=== PATIENT | male | born 1960 | race Caucasian/White ===

== ENCOUNTER → 2018-03-24 07:15 | Outpatient (CLI) | payer OTHER, SELFPAY ==
[2018-03-24 07:53] LABS: Add Manual Diff / Slide Review NO; Basophils Percent Auto 0.5 % (0-2); Eosinophils Percent Auto 1.3 % (2-4); Hematocrit 45.9 % (41-53); Hemoglobin 15.6 g/dL (13.5-17.5); Lymphocytes Percent Auto 18.2 % (25-40); Mean Corpuscular HGB Conc 33.9 % (30-36); Mean Corpuscular Hemoglobin 31.3 PG (26-34); Mean Corpuscular Volume 92.4 fL (80-100); Monocytes Percent Auto 6.8 % (3-14); Neutrophils Absolute Auto 6400 /uL (3000-5900); Neutrophils Percent Auto 73.2 % (50-75); Platelet Count 199 X10^3/uL (150-400); Red Blood Cell Count 4.97 X10^6/uL (4.5-5.9); Red Cell Distribution Width 13.5 % (11.6-14.8); White Blood Cell Count 8.8 X10^3/uL (4.5-11.0)
[2018-03-24 08:13] LABS: Alanine Aminotransferase 33 IU/L (21-72); Albumin 4.1 g/dL (3.5-5.0); Albumin Globulin Ratio 1.3 (1.0-2.8); Alkaline Phosphatase 58 U/L (38-126); Aspartate Aminotransferase 28 IU/L (17-59); Blood Urea Nitrogen 20 mg/dL (9-20); Calcium 9.6 mg/dL (8.4-10.2); Carbon Dioxide 31 mmol/L (22-32); Chloride 101 mmol/L (98-107); Cholesterol 178 mg/dL (140-199); Estimated Glomerular Filt Rate > 60.0 mL/min (>60); Globulin 3.2 g/dL (1.7-4.1); Glucose 106 mg/dL (70-100); HDL Cholesterol 62 mg/dL (40-60); HEMOLYSIS < 15 (0-50); LDL Cholesterol Calculated 107 mg/dL (<100); Potassium 4.3 mmol/L (3.4-5.1); Sodium 141 mmol/L (137-145); Total Protein 7.3 g/dL (6.3-8.2); Triglycerides 43 mg/dL (35-150)
[2018-03-24 08:40] LABS: Prostate Specific Antigen Scrn 2.57 ng/mL (0.1-4.0); TSH w/ Reflex to FT4 2.13 uIU/mL (0.47-4.68)
== END ==
PROVIDERS: Family Provider Family Medicine; PCP Family Medicine; Visit Provider Family Medicine
DX: I10 Essential (primary) hypertension (principal); Z12.5 Encounter for screening for malignant neoplasm of prostate
CPT/HCPCS: 36415; 80053; 80061; 84443; 85025; G0103

== ENCOUNTER → 2020-06-26 08:47 | Outpatient (CLI) | payer OTHER, SELFPAY ==
[2020-06-26 10:01] LABS: Add Manual Diff / Slide Review NO; Basophils Absolute Auto 0 /uL (0-100); Basophils Percent Auto 0.7 % (0-2); Eosinophils Absolute Auto 100 /uL (0-450); Eosinophils Percent Auto 2.7 % (2-4); Hematocrit 45.8 % (41-53); Hemoglobin 15.5 g/dL (13.5-17.5); Lymphocytes Absolute Auto 1300 /uL (1100-4500); Lymphocytes Percent Auto 26.7 % (25-40); Mean Corpuscular HGB Conc 33.7 % (30-36); Mean Corpuscular Hemoglobin 31.7 PG (26-34); Mean Corpuscular Volume 94.1 fL (80-100); Monocytes Absolute Auto 500 /uL (0-900); Monocytes Percent Auto 9.9 % (3-14); Neutrophils Absolute Auto 3000 /uL (1500-7000); Platelet Count 186 X10^3/uL (150-400); Red Blood Cell Count 4.87 X10^6/uL (4.5-5.9); Red Cell Distribution Width 13.3 % (11.6-14.8)
[2020-06-26 10:06] LABS: Alanine Aminotransferase 19 IU/L (<50); Albumin 4.1 g/dL (3.5-5.0); Albumin Globulin Ratio 1.4 (1.0-2.8); Alkaline Phosphatase 57 U/L (38-126); Aspartate Aminotransferase 24 IU/L (17-59); BUN Creatinine Ratio 21.5 (6-22); Bilirubin Total 0.6 mg/dL (0.2-1.3); Blood Urea Nitrogen 20 mg/dL (9-20); Calcium 9.8 mg/dL (8.4-10.2); Carbon Dioxide 31 mmol/L (22-32); Chloride 102 mmol/L (98-107); Cholesterol 199 mg/dL (140-199); Estimated Glomerular Filt Rate > 60.0 mL/min (>60); Globulin 2.9 g/dL (1.7-4.1); Glucose 104 mg/dL (70-100); HDL Cholesterol 80 mg/dL (40-60); HEMOLYSIS < 15 (0-50); LDL Cholesterol Calculated 110 mg/dL (<100); Potassium 4.9 mmol/L (3.4-5.1); Sodium 138 mmol/L (137-145); Triglycerides 43 mg/dL (35-150)
[2020-06-26 10:37] LABS: Prostate Specific Antigen Scrn 2.76 ng/mL (0.1-4.0)
[2020-06-26 11:08] LABS: TSH w/ Reflex to FT4 1.75 uIU/mL (0.47-4.68)
== END ==
PROVIDERS: Family Provider Family Medicine; PCP Family Medicine; Referring Provider Family Medicine; Visit Provider Family Medicine
DX: Z12.5 Encounter for screening for malignant neoplasm of prostate (principal); I10 Essential (primary) hypertension; Z13.6 Encounter for screening for cardiovascular disorders
CPT/HCPCS: 36415; 80053; 80061; 84443; 85025; G0103

== ENCOUNTER 2021-09-02 16:28 | Emergency (ER) | payer OTHER, SELFPAY ==
[2021-09-02 16:39] VITALS: BP 187/96; PULSE 93; RESP 20; TEMP 37.1; O2SAT 99; BMI 21.6
--- NOTE | 2021-09-02 19:02 | ED_ITS ---
HPI - Nausea/Vomiting/Diarrhea General Chief complaint: Nausea/Vomiting/Diarrhea Stated complaint: SPASMS IN ESOPHAGUS, ABD PRESSURE Time Seen by Provider: 09/02/21 18:38 Source: patient Mode of arrival: Ambulatory History of Present Illness HPI Narrative: Patient is a 61-year-old male who presents with esophageal spasm. He said he ate breakfast this morning without issue younger in the [employer] [place]. At lunch he had pork winter [facility] with pumpkin [place] he felt something get stuck and not quite go down. He tried water it increased the pressure up into his neck and chest. He vomited things came mouth he continued to have spasm and tightness sensation continued to spit. Now after being in the emergency department he is actually feeling better. I gave him pepsi he was able to drink it without any difficulty in feels like his symptoms have completely resolved. Related Data Previous Rx's Medication Instructions Recorded lisinopril 10 mg tablet 15 mg PO QDAY #180 tab 12/10/20 Allergies Allergy/AdvReac Type Severity Reaction Status Date / Time amoxicillin [AMOXICILLIN] Allergy Mild RASH Verified 07/01/20 09:22 Review of Systems Review of Systems Narrative: GENERAL: Denies chills, fatigue, malaise, fever, sweats, travel HEENT: See HPI RESPIRATORY: Denies dyspnea, cough, wheezing, hemoptysis, sputum. CARDIOVASCULAR: Denies chest pain, palpitations, orthopnea, edema GASTROINTESTINAL: Denies nausea, vomiting, abdominal pain, diarrhea, constipation, melena. : Denies dysuria, frequency, incontinence, hematuria, urinary retention, flank pain. MUSCULOSKELETAL: Denies weakness, joint pain, or bony pain SKIN: No rash, no erythema, no pruritus NEUROLOGIC: Denies weakness, dizziness, headache, numbness, change in speech, confusion PSYCHIATRIC: No concerning psychosocial issues. 12 point review of systems is negative except for those stated above and HPI Patient History Medical History (Updated 09/02/21 @ 19:06 by Shelby Lay DO) Hypertension (~2012) Vision disorder Surgical History Anesthesia History of oral surgery (~02/1978) History of third molar tooth extraction (~1979) Varicocele (~03/1984) Family History Father Age: 85 Hypertension Grandfather Age: 88 Heart failure Diabetes mellitus Mother Age: 80 Hypertension Grandmother Age: 90 Heart disease Sister Age: 55 Hypertension Social History marital status: Smoking Status: Never smoker alcohol intake: current (1-2 A DAY ) substance use type: does not use Smoking Status: Never smoker alcohol intake frequency: 0-2 drinks per day Substance Use Type: does not use Exam Initial Vital Signs Initial Vital Signs: Vital Signs Temperature 98.7 F 09/02/21 16:39 Pulse Rate 93 H 09/02/21 16:39 Respiratory Rate 20 09/02/21 16:39 Blood Pressure 187/96 H 09/02/21 16:39 Pulse Oximetry 99 09/02/21 16:39 GENERAL: Well-appearing 61-year-old male in no acute distress. HEENT: Head atraumatic,EOMI, pupils reactive, face symmetric, moist mucous membranes CARDIOVASCULAR: Regular rate and rhythm without murmurs, rubs or gallops. RESPIRATORY: Breath sounds equal bilaterally, no wheezes rales or rhonchi. Speaks in full sentences managing secretions EXTREMITIES: Normal range of motion, no clubbing or edema. Neurovascularly intact NEUROLOGICAL: Alert and oriented x4. SKIN: Warm, dry, no laceration, no petechiae, no rashes or lesions. Course Vital Signs Vital signs: Vital Signs - 8 hr 09/02/21 19:14 Pulse Rate 105 H Blood Pressure 188/111 H Pulse Oximetry 98 MDM - Nausea/Vomiting/Diarrhea MDM Narrative Medical decision making narrative: Patient's symptoms have overall completely resolved while in the emergency department and after drinking Pepsi. He has no tightness or fullness he is able to swallow and manage secretions. Symptoms are consistent with esophageal spasm. At this time no further testing or imaging is needed. Discharge Plan Departure Patient Disposition: Home Clinical Impression: Spasm of esophagus Instructions: Steakhouse Syndrome Activity Restrictions/Additional Instructions: *You have been diagnosed with esophageal spasm *What to do: Make sure you increase water intake while eating. If this happens again that you may need further testing *Continue to take medications as directed *Follow up with your primary care provider in 2-3 days *Return to ER if you should have any new, worsening or concerning symptoms Prescriptions: No Action lisinopril 10 mg tablet 15 mg PO QDAY Qty: 180 2RF Referrals: Gordon Marinelli MD [Primary Care Provider] -
[2021-09-02 19:14] VITALS: BP 188/111; PULSE 105; O2SAT 98
== END 2021-09-02 19:14 | disposition home or self-care (01) ==
PROVIDERS: Emergency Provider Emergency Medicine; Family Provider Family Medicine; PCP Family Medicine
DX: K22.4 Dyskinesia of esophagus (principal)
CPT/HCPCS: 99281

== ENCOUNTER → 2022-01-26 09:50 | Outpatient (CLI) | payer OTHER, SELFPAY ==
[2022-01-26 10:51] LABS: Add Manual Diff / Slide Review NO; Basophils Absolute Auto 0 /uL (0-100); Basophils Percent Auto 0.6 % (0-2); Eosinophils Absolute Auto 100 /uL (0-450); Eosinophils Percent Auto 1.9 % (2-4); Hematocrit 46.8 % (41-53); Hemoglobin 15.7 g/dL (13.5-17.5); Lymphocytes Absolute Auto 1500 /uL (1100-4500); Lymphocytes Percent Auto 19.1 % (25-40); Mean Corpuscular HGB Conc 33.5 % (30-36); Mean Corpuscular Hemoglobin 30.9 PG (26-34); Mean Corpuscular Volume 92.1 fL (80-100); Monocytes Absolute Auto 600 /uL (0-900); Monocytes Percent Auto 8.1 % (3-14); Neutrophils Absolute Auto 5400 /uL (1500-7000); Neutrophils Percent Auto 70.3 % (50-75); Platelet Count 204 X10^3/uL (150-400); Red Blood Cell Count 5.09 X10^6/uL (4.5-5.9); Red Cell Distribution Width 13.5 % (11.6-14.8); White Blood Cell Count 7.7 X10^3/uL (4.5-11.0)
[2022-01-26 11:30] LABS: Cholesterol 203 mg/dL (140-199); HDL Cholesterol 79 mg/dL (40-60); LDL Cholesterol Calculated 114 mg/dL (<100); Triglycerides 51 mg/dL (35-150)
[2022-01-26 11:58] LABS: Prostate Specific Antigen Scrn 5.49 ng/mL (0.1-4.0)
== END ==
PROVIDERS: Family Provider Family Medicine; PCP Family Medicine; Referring Provider Family Medicine; Visit Provider Family Medicine
DX: Z12.5 Encounter for screening for malignant neoplasm of prostate (principal); I10 Essential (primary) hypertension
CPT/HCPCS: 36415; 80061; 84443; 85025; G0103

== ENCOUNTER → 2022-09-29 06:54 | Outpatient (CLI) | payer OTHER, SELFPAY ==
[2022-09-29 09:37] LABS: Prostate Specific Antigen Scrn 3.74 ng/mL (0.1-4.0)
== END ==
PROVIDERS: Family Provider Family Medicine; PCP Family Medicine; Referring Provider Family Medicine; Visit Provider Family Medicine
DX: Z12.5 Encounter for screening for malignant neoplasm of prostate (principal)
CPT/HCPCS: 36415; G0103

== ENCOUNTER → 2023-03-17 06:52 | Outpatient (CLI) | payer OTHER, SELFPAY ==
[2023-03-17 08:42] LABS: Basophils Absolute Auto 0 /uL (0-100); Basophils Percent Auto 0.7 % (0-2); Eosinophils Absolute Auto 100 /uL (0-450); Eosinophils Percent Auto 2.1 % (2-4); Hematocrit 43.9 % (41-53); Hemoglobin 14.7 g/dL (13.5-17.5); Lymphocytes Absolute Auto 1700 /uL (1100-4500); Lymphocytes Percent Auto 27.4 % (25-40); Mean Corpuscular HGB Conc 33.6 % (30-36); Mean Corpuscular Hemoglobin 30.8 PG (26-34); Mean Corpuscular Volume 91.7 fL (80-100); Monocytes Absolute Auto 600 /uL (0-900); Monocytes Percent Auto 9.8 % (3-14); Neutrophils Absolute Auto 3800 /uL (1500-7000); Platelet Count 190 X10^3/uL (150-400); Red Blood Cell Count 4.78 X10^6/uL (4.5-5.9); Red Cell Distribution Width 13.3 % (11.6-14.8); White Blood Cell Count 6.3 X10^3/uL (4.5-11.0)
[2023-03-17 08:57] LABS: Add Manual Diff / Slide Review SLIDE REVIEW
[2023-03-17 08:59] LABS: RBC Morphology Normal Morphology
[2023-03-17 09:08] LABS: Alanine Aminotransferase 23 IU/L (<50); Albumin 3.8 g/dL (3.5-5.0); Albumin Globulin Ratio 1.4 (1.0-2.8); Alkaline Phosphatase 51 U/L (38-126); Aspartate Aminotransferase 22 IU/L (17-59); BUN Creatinine Ratio 21.6 (6-22); Bilirubin Total 0.6 mg/dL (0.2-1.3); Blood Urea Nitrogen 24 mg/dL (9-20); Calcium 9.4 mg/dL (8.4-10.2); Carbon Dioxide 30 mmol/L (22-32); Chloride 102 mmol/L (98-107); Cholesterol 165 mg/dL (140-199); Estimated Glomerular Filt Rate > 60 mL/min (>60); Globulin 2.7 g/dL (1.7-4.1); Glucose 99 mg/dL (80-110); HDL Cholesterol 55 mg/dL (40-60); HEMOLYSIS < 15 (0-50); LDL Cholesterol Calculated 101 mg/dL (<100); Potassium 4.4 mmol/L (3.4-5.1); Sodium 137 mmol/L (137-145); Total Protein 6.5 g/dL (6.3-8.2); Triglycerides 44 mg/dL (35-150)
[2023-03-17 09:38] LABS: Prostate Specific Antigen Scrn 3.01 ng/mL (0.1-4.0); TSH w/ Reflex to FT4 1.84 uIU/mL (0.47-4.68)
== END ==
PROVIDERS: Family Provider Family Medicine; PCP Family Medicine; Referring Provider Family Medicine; Visit Provider Family Medicine
DX: I10 Essential (primary) hypertension (principal); R97.20 Elevated prostate specific antigen [PSA]; Z12.5 Encounter for screening for malignant neoplasm of prostate
CPT/HCPCS: 36415; 80053; 80061; 84443; 85025; G0103

== ENCOUNTER 2023-03-25 08:28 | Day surgery (SDC) | payer OTHER, SELFPAY ==
--- NOTE | 2023-03-25 | PATH_ITS ---
[facility] Accession Number: [id number] No. of containers..01 Tissue . 01 Material submitted: . colon - SIGMOID COLON BIOPSY . 01 Diagnosis: Sigmoid Colon, Biopsy: Colonic mucosa with mildly extravasated red blood cells in the lamina propria and a small benign lymphoid aggregate; please see comment. Negative for active, chronic and microscopic colitis. Negative for dysplasia or malignancy. [facility] 03/31/2023 1435 Local . 01 Comment: The morphologic features could be due to procedure related changes, trauma/prolapse, diverticular disease or less likely early ischemia type changes. . 01 Electronically signed: . Tori Taylor MD, Pathologist NPI- [id number] . 01 Gross description: . SIGMOID COLON BIOPSY: Received in formalin is 1 fragment(s) of franklin, soft tissue measuring 0.3 x 0.2 x 0.2 cm submitted entirely in 1 cassette(s) /ANICETO 03/29/2023 2224 Local . 01 Pathologist provided ICD-10: R10.9 . 01 CPT . 307866 Specimen Comment: A courtesy copy of this report has been sent to [facility] Pathology Performed at: 01 [facility] Cyt[facility] [address] [place] [address], [place], [place] [id number] MD Gurjit Mendez MD Phone: [phone]
[2023-03-25 08:43] VITALS: BP 148/93; PULSE 71; RESP 16; TEMP 36.2; O2SAT 100; BMI 21.3
[2023-03-25] MEDS: LACTATED RINGERS 1,000 ML 125 ML IV (08:53)
--- NOTE | 2023-03-25 09:28 | P.HP_ITS ---
History of Present Illness History of Present Illness Date Patient Seen: 03/25/23 Time Patient Seen: 09:28 Chief complaint: [facility] [place] Narrative: Mr. Rodriguez presents today for what is probably his 4th colonoscope. The historical record does show an encounter with Dr. Ramos and an operative report dated August 2012 however the text of the report is not viewable. Patient does not recall any polyps, he has no family history of colon cancer and no concerning symptoms. His 1st colonoscopy was done in his 40s because of symptoms that he contracted in [place] from a buffet. He also is highly concerned about colon cancer in general because of a friend who suffered. [facility] Medical History (Updated 03/25/23 @ 09:31 by Tayler Garner MD) Hypertension (~2012) Vision disorder Surgical History Anesthesia History of oral surgery (~02/1978) History of third molar tooth extraction (~1979) Varicocele (~03/1984) Family History Father Age: 86 Hypertension Grandfather Age: 89 Heart failure Diabetes mellitus Mother Age: 81 Hypertension Grandmother Age: 91 Heart disease Sister Age: 56 Hypertension Social History marital status: household members: spouse Smoking Status: Never smoker alcohol intake: current substance use type: does not use Meds Home Medications and Allergies Home Medications Medication Instructions Recorded Confirmed Type lisinopril 20 1 tab PO DAILY #90 tabs 02/07/23 03/25/23 Rx mg-hydrochlorothiazide 12.5 mg tablet ketorolac 10 mg tablet 10 mg PO Q6H PRN Pain (Scale Score 03/25/23 03/25/23 History 1-3) Allergies Allergy/AdvReac Type Severity Reaction Status Date / Time amoxicillin [AMOXICILLIN] Allergy Mild RASH Verified 03/24/23 09:06 Exam Vital Signs (past 8 hours): - 03/25/23 08:43 Temperature 97.2 F L Pulse Rate 71 Respiratory Rate 16 Blood Pressure 148/93 H Pulse Oximetry 100 Oxygen Delivery Method Room Air Oxygen Delivery Method Room Air Const General: cooperative, healthy appearing and comfortable Nutritional Appearance: average body habitus, well nourished and other (fit) Orientation: alert, awake and oriented x3 HENMT Head: normal to inspection Mouth: oral mucosae normal Eyes General: appearance normal, both eyes and all related structures Resp Effort & Inspection: normal respiratory effort and able to speak in complete sentences GI Palpation: soft and No tender Assessment & Plan Assessment and plan (1) Screening for colon cancer: Status: Acute Assessment & Plan narrative: Presents today for screening colonoscopy I discussed the risks benefits and alternatives including but not limited to perforation of the colon and an incomplete exam he fully understands these risks and would like to proceed.
--- NOTE | 2023-03-25 10:22 | P.OP.COLON_ITS ---
Operative Date/Time/Diagnoses Date of procedure: 03/25/23 Time of procedure: 10:22 Pre-op diagnosis: Screening colonoscopy, no family history Post-op diagnosis: same Procedure & Clinicians Study performed: Colonoscopy and biopsy Same procedure as scheduled: Yes Indications: Screening colonoscopy no family history Surgeon: Tayler Garner Procedure Notes Procedure in detail: Patient was taken to the endoscopy suite and placed in a left lateral decubitus position. A time-out was performed. With the help of anesthesiologist conscious sedation was induced and monitored throughout the case. A digital rectal exam was performed and there were no masses or strictures. The colonoscope was introduced into the anal canal and advanced through to the cecum. A photograph of the appendiceal orifice was obtained. The bowel prep was excellent [place] bowel prep score of 3. The scope was then withdrawn for a total of 12 minutes and there was 1 small polyp seen in the sigmoid colon it was removed with the biopsy forceps and sent for pathology. There were also scattered diverticula which were photographed throughout the sigmoid colon.. The scope was then withdrawn through the anal canal and a photograph of the internal hemorrhoidal piles was obtained. Patient tolerated the procedure well and went in good condition to the postoperative care unit Findings: divertiulosis and polyp(s) Specimen(s): other (Sigmoid colon small polyp) Impression: Discussed the findings with Mireya. There are incidental diverticula and 1 small polyp follow-up will likely be in 7-10 years. I do recommend a fiber supplement.
[2023-03-25 10:23] VITALS: BP 107/70; PULSE 71; RESP 14; TEMP 35.8; O2SAT 98
[2023-03-25 10:28] VITALS: BP 108/70; PULSE 65; RESP 12; O2SAT 99
[2023-03-25 10:35] VITALS: BP 128/85; PULSE 74; RESP 11; O2SAT 100
[2023-03-25 10:38] VITALS: BP 135/92; PULSE 71; RESP 14; O2SAT 98
[2023-03-25 10:43] VITALS: BP 138/93; PULSE 71; RESP 14; O2SAT 99
== END 2023-03-25 10:57 | disposition home or self-care (01) ==
PROVIDERS: Family Provider Family Medicine; PCP Family Medicine; Referring Provider Surgery; Visit Provider Surgery
PROC: 0DJD8ZZ Inspection of Lower Intestinal Tract, Via Natural or Artificial Opening Endoscopic (ICD-10-PCS; CPT 45378; principal; 2023-03-25 09:30)
DX: K63.5 Polyp of colon (principal)
CPT/HCPCS: 45380; J2704

== ENCOUNTER → 2024-09-14 08:50 | Outpatient (CLI) | payer BC, SELFPAY ==
[2024-09-14 09:12] LABS: Add Manual Diff / Slide Review NO; Basophils Absolute Auto 100 /uL (0-100); Basophils Percent Auto 0.9 % (0-2); Eosinophils Absolute Auto 200 /uL (0-450); Eosinophils Percent Auto 3.4 % (2-4); Hematocrit 46.1 % (41-53); Hemoglobin 15.6 g/dL (13.5-17.5); Lymphocytes Absolute Auto 1900 /uL (1100-4500); Lymphocytes Percent Auto 28.7 % (25-40); Mean Corpuscular HGB Conc 33.8 % (30-36); Mean Corpuscular Hemoglobin 31.3 PG (26-34); Mean Corpuscular Volume 92.4 fL (80-100); Monocytes Absolute Auto 700 /uL (0-900); Neutrophils Absolute Auto 3700 /uL (1500-7000); Platelet Count 204 X10^3/uL (150-400); Red Blood Cell Count 4.99 X10^6/uL (4.5-5.9); Red Cell Distribution Width 13.7 % (11.6-14.8); White Blood Cell Count 6.6 X10^3/uL (4.5-11.0)
[2024-09-14 09:45] LABS: Alanine Aminotransferase 25 IU/L (<50); Albumin 4.1 g/dL (3.5-5.0); Albumin Globulin Ratio 1.5 (1.0-2.8); Alkaline Phosphatase 52 U/L (38-126); Aspartate Aminotransferase 28 IU/L (17-59); BUN Creatinine Ratio 17.7 (6-22); Bilirubin Total 0.9 mg/dL (0.2-1.3); Blood Urea Nitrogen 20 mg/dL (9-20); Calcium 9.9 mg/dL (8.4-10.2); Carbon Dioxide 28 mmol/L (22-32); Chloride 102 mmol/L (98-107); Cholesterol 192 mg/dL (140-199); Estimated Glomerular Filt Rate > 60 mL/min (>60); Globulin 2.7 g/dL (1.7-4.1); Glucose 112 mg/dL (80-110); HDL Cholesterol 62 mg/dL (40-60); HEMOLYSIS < 15 (0-50); LDL Cholesterol Calculated 115 mg/dL (<100); Potassium 4.2 mmol/L (3.4-5.1); Sodium 135 mmol/L (137-145); Total Protein 6.8 g/dL (6.3-8.2); Triglycerides 74 mg/dL (35-150)
[2024-09-14 10:16] LABS: Prostate Specific Antigen Scrn 5.49 ng/mL (0.1-4.0)
[2024-09-14 10:18] LABS: TSH w/ Reflex to FT4 1.98 uIU/mL (0.47-4.68)
== END ==
PROVIDERS: Family Provider Family Medicine; PCP Family Medicine; Referring Provider Family Medicine; Visit Provider Family Medicine
DX: Z00.00 Encounter for general adult medical examination without abnormal findings (principal); Z12.5 Encounter for screening for malignant neoplasm of prostate; I10 Essential (primary) hypertension; K21.9 Gastro-esophageal reflux disease without esophagitis; E78.5 Hyperlipidemia, unspecified
CPT/HCPCS: 36415; 80053; 80061; 84443; 85025; G0103

== ENCOUNTER → 2025-02-12 09:44 | Outpatient (CLI) | payer BC, SELFPAY | PROVIDERS: Family Provider Family Medicine; PCP Family Medicine; Referring Provider Family Medicine; Visit Provider Family Medicine | DX: Z12.5 Encounter for screening for malignant neoplasm of prostate (principal) | CPT/HCPCS: 36415; G0103 ==